=== PATIENT | female | born 1950 | race Caucasian/White ===

== ENCOUNTER 2020-07-05 06:38 | Day surgery (SDC) | payer MEDICARE ==
[2020-07-05] MEDS ORDERED: Sodium Chloride 0.9% 1,000 ML IV SCH (07:00)
[2020-07-05] MEDS ORDERED: fentaNYL 100 MCG/2 ML SDV ONE (07:19)
[2020-07-05] MEDS ORDERED: Midazolam 1 MG/ML 2 ML SDV ONE (07:19)
[2020-07-05] MEDS ORDERED: Propofol 200 MG/20 ML SDV ONE ×2 (07:19→08:24)
--- NOTE | 2020-07-05 14:40 | OR ---
DATE OF PROCEDURE: 07/05/2020 SURGEON: Loco Jarrell MD PROCEDURE: Colonoscopy. FINDINGS: 1. Diverticulosis without evidence of diverticulitis or bleeding throughout the entire colon, but mostly concentrated in sigmoid colon. 2. Ascending colon polyp, approximately 8 mm, completely removed using hot snare wire device. 3. Ascending colon polyp #2, approximately 5 mm, completely removed using hot snare wire device. 4. Transverse colon polyp #1, approximately 1 cm, completely removed using hot snare wire device. 5. Transverse colon polyp #2, approximately 5 mm, completely removed using hot snare wire device. 6. Transverse colon polyp #3, approximately 8 mm, completely removed using hot snare wire device. 7. Transverse colon polyp #4, approximately 5 mm, completely removed using cold biopsy forceps. 8. Transverse colon polyp #5, approximately 8 mm, completely removed using hot snare wire device. 9. Transverse colon polyp #6, approximately 8 mm, completely removed using hot snare wire device. 10.Descending colon polyp #1, approximately 8 mm, completely removed using hot snare wire device. 11.Sigmoid colon polyp #1, approximately 5 mm, completely removed using cold biopsy forceps. 12.Sigmoid colon polyp #2, approximately 8 mm, completely removed using hot snare wire device. COMPLICATIONS: None. PHARM TECH: None. ANESTHESIA: MAC. PREOPERATIVE DIAGNOSIS: Screening colonoscopy. POSTOPERATIVE DIAGNOSIS: Screening colonoscopy. RISKS: Risks, benefits, alternatives, and limitations including, but not limited to infection, bleeding, perforation, false positives, and false negatives were explained to the patient who wished to proceed. PROCEDURE IN DETAIL: The patient was placed in left lateral decubitus position. Digital rectal exam was performed without abnormality. Scope was introduced and advanced atraumatically to the ileocecal valve. A photo was taken. The scope was brought back to the ascending, transverse, descending colon, and retroflexed. The aforementioned polyps were all completely removed as described above. No abnormal bleeding was noted after removal of the aforementioned polyps. The diverticulosis would be described as mild throughout the entire colon, but mostly concentrated in the sigmoid colon without evidence of diverticulitis or bleeding. No evidence of colitis. The prep was acceptable, approximately 90% luminal surface could be seen. No abnormalities on retroflexion. Greater than 8 minutes was spent removing the scope. The patient tolerated the procedure well. Loco Jarrell MD /[id number]
== END 2020-07-05 09:46 | disposition home or self-care (01) ==
LOC: JP.SDS 06:38
PROVIDERS: ATTEND Surgery
DX: Z12.11 Encounter for screening for malignant neoplasm of colon (principal); D12.2 Benign neoplasm of ascending colon; D12.4 Benign neoplasm of descending colon; D12.5 Benign neoplasm of sigmoid colon; D12.3 Benign neoplasm of transverse colon; K57.30 Diverticulosis of large intestine without perforation or abscess without bleeding; J44.9 Chronic obstructive pulmonary disease, unspecified; E66.9 Obesity, unspecified; Z68.31 Body mass index [BMI] 31.0-31.9, adult; Z88.8 Allergy status to other drugs, medicaments and biological substances
CPT/HCPCS: 45380; 45385; J2250; J2704; J3010; J7030; 88305

== ENCOUNTER 2021-07-07 06:23 | Day surgery (SDC) | payer MEDICARE ==
[2021-07-07] MEDS ORDERED: Sodium Chloride 0.9% 1,000 ML IV SCH (07:00)
[2021-07-07] MEDS ORDERED: Midazolam 1 MG/ML 2 ML SDV ONE (07:25)
[2021-07-07] MEDS ORDERED: fentaNYL 100 MCG/2 ML SDV ONE (07:25)
[2021-07-07] MEDS ORDERED: Propofol 200 MG/20 ML SDV ONE ×2 (07:25→08:05)
== END 2021-07-07 09:55 | disposition home or self-care (01) ==
LOC: JP.SDS 06:23
PROVIDERS: ATTEND Surgery
DX: Z12.11 Encounter for screening for malignant neoplasm of colon (principal); D12.2 Benign neoplasm of ascending colon; D12.3 Benign neoplasm of transverse colon; K57.30 Diverticulosis of large intestine without perforation or abscess without bleeding; J44.9 Chronic obstructive pulmonary disease, unspecified
CPT/HCPCS: 88305; J2250; J2704; J3010; J7030

== ENCOUNTER 2021-10-30 22:36 | Emergency (ER) | payer MEDICARE ==
[2021-10-30] MEDS ORDERED: Diphtheria,Pertussis(Acell),Tetanus Vaccine 0.5 ML Syringe IM ONE (23:04)
[2021-10-30 23:12] LABS: ESTIMATED GFR 79 mL/min (>60)
[2021-10-31] MEDS ORDERED: Bacitracin Oint 1 GM U/D Packet TOP ONE (00:30)
== END 2021-10-31 01:11 | disposition home or self-care (01) ==
LOC: JP.ED 22:36
DX: S01.81XA Laceration without foreign body of other part of head, initial encounter (principal); S01.01XA Laceration without foreign body of scalp, initial encounter; F10.920 Alcohol use, unspecified with intoxication, uncomplicated; J44.9 Chronic obstructive pulmonary disease, unspecified; E66.9 Obesity, unspecified; Z68.30 Body mass index [BMI] 30.0-30.9, adult; Z23 Encounter for immunization; Z88.8 Allergy status to other drugs, medicaments and biological substances; Z91.048 Other nonmedicinal substance allergy status; Z91.09 Other allergy status, other than to drugs and biological substances; Z90.710 Acquired absence of both cervix and uterus; Z87.891 Personal history of nicotine dependence; Z79.899 Other long term (current) drug therapy; W01.198A Fall on same level from slipping, tripping and stumbling with subsequent striking against other object, initial encounter
CPT/HCPCS: 12016; 36415; 70450; 80053; 80307; 85025; 90471; 90715; 99281; 99285-25